=== PATIENT | male | born 1960 | race Caucasian/White ===

== ENCOUNTER 2018-08-17 21:18 | Emergency (ER) | payer OTHER ==
[~2018-08-17] VITALS: Ht 170.2 cm; Wt 81.7 kg
[~2018-08-17 21:18] MED LIST: AUGMENTIN 875875 MG PO; PRINIVIL20 MG PO; TYLENOL325 MG PO; ULTRAM 50MG TAB50 MG PO
[2018-08-17] MEDS ORDERED: AMOXICILLIN875 MG PO (22:23)
[2018-08-17 22:30] VITALS: BP 130/85
== END 2018-08-17 22:31 | disposition home or self-care (01) ==
LOC: ER 21:18
DX: S01.01XA Laceration without foreign body of scalp, initial encounter (principal); J32.9 Chronic sinusitis, unspecified; I10 Essential (primary) hypertension; W01.0XXA Fall on same level from slipping, tripping and stumbling without subsequent striking against object, initial encounter; Y92.89 Other specified places as the place of occurrence of the external cause; Y93.68 Activity, volleyball (beach) (court); Y99.8 Other external cause status